=== PATIENT | male | born 1965 | race Caucasian/White ===

== ENCOUNTER 2023-09-07 16:41 | Emergency (ER) | payer SELFPAY ==
[~2023-09-07] VITALS: Ht 165.1 cm; Wt 73.0 kg
[2023-09-07 16:52] VITALS: BP 178/112; PULSE 107; RESP 18; TEMP 98.9; O2SAT 95
[2023-09-07] MEDS: SODIUM CHLORIDE 0.9% 1,000 ML IV ONE (19:39)
[2023-09-07 19:49] LABS: CHLORIDE 109 mEq/L (98-107); POTASSIUM 3.9 mEq/L (3.5-5.1); SODIUM 144 mEq/L (136-145)
[2023-09-07 19:50] LABS: CALCIUM 8.6 mg/dL (8.7-10.4); CARBON DIOXIDE 24 mEq/L (21-32)
[2023-09-07 19:55] LABS: CREATININE 0.7 mg/dL (0.6-1.3); GLUCOSE 103 mg/dL (70-105)
[2023-09-07 20:00] LABS: BASOPHILS % 0.5 % (0.0-2.0); EOSINOPHILS % 1.8 % (0.0-5.0); HEMATOCRIT. 45.8 % (42.0-52.0); HEMOGLOBIN. 15.8 g/dL (14.0-18.0); LYMPHOCYTES % 36.8 % (20.0-50.0); MEAN CORPUSCULAR HEMOGLOBIN 30.5 pg (28.0-32.0); MEAN CORPUSCULAR HGB CONC 34.5 g/dL (31.0-37.0); MEAN CORPUSCULAR VOLUME 88.1 fL (80.0-94.0); MEAN PLATELET VOLUME 6.9 fl (7.4-10.4); NEUTROPHILS % 54.9 % (40.0-76.0); PLATELET 329 x1000/uL (130-400); RED BLOOD CELL COUNT 5.19 mill/uL (4.7-6.1)
[2023-09-07 20:04] LABS: UREA NITROGEN BLOOD < 5 mg/dL (9-23)
[2023-09-07 20:05] LABS: ETHANOL BLOOD 330 mg/dL (<10)
== END 2023-09-07 22:37 | disposition home or self-care (01) ==
LOC: ER 16:41
DX: F10.129 Alcohol abuse with intoxication, unspecified (principal); Y90.8 Blood alcohol level of 240 mg/100 ml or more
CPT/HCPCS: 80048; 80320; 85025; 36415; 96360; 99283; J7030; Z7610; G0480

== ENCOUNTER 2024-09-22 16:24 | Inpatient (IN) | payer MEDICAID ==
[~2024-09-22] VITALS: Ht 157.5 cm; Wt 66.7 kg
[~2024-09-22 16:24] MED LIST: FOLI-43 MT; MULT-624 MT; THIA50TA12 MT
[2024-09-22 16:25] VITALS: O2SAT 99
[2024-09-22] MEDS ORDERED: ACETAMINOPHEN 325MG TABLET PO ONE (17:00)
[2024-09-22 17:28] LABS: BASOPHILS % 0.5 % (0.0-2.0); EOSINOPHILS % 1.7 % (0.0-5.0); HEMATOCRIT. 45.0 % (42.0-52.0); HEMOGLOBIN. 15.4 g/dL (14.0-18.0); LYMPHOCYTES % 24.0 % (20.0-50.0); MEAN PLATELET VOLUME 6.7 fl (7.4-10.4); MONOCYTES % 6.9 % (2.0-8.0); NEUTROPHILS % 66.9 % (40.0-76.0); PLATELET 305 x1000/uL (130-400); RED BLOOD CELL COUNT 5.06 mill/uL (4.7-6.1); RED CELL DISTRIBUTION WIDTH 14.8 % (11.6-14.6)
[2024-09-22] MEDS ORDERED: PANTOPRAZOLE SODIUM 40 MG/VIAL IV ONE (17:30)
[2024-09-22 17:37] LABS: CREATININE 0.7 mg/dL (0.6-1.3); TROPONIN I HIGH SENSITIVITY < 4 ng/L (3.0-53); UREA NITROGEN BLOOD 10 mg/dL (9-23)
[2024-09-22 17:38] LABS: ETHANOL BLOOD 158 mg/dL (<10)
[2024-09-22 17:39] LABS: ASPARTATE AMINOTRANSFERASE 30 IU/L (<34)
[2024-09-22 17:40] LABS: BILIRUBIN DIRECT 0.2 mg/dL (<=3.0); BILIRUBIN TOTAL 1.1 mg/dL (0.1-1.0); PROTEIN TOTAL 6.8 g/dL (6.0-8.3)
[2024-09-22] MEDS: LORAZEPAM 2MG/ML UD SYRINGE IV SCH (19:40)
[2024-09-22] MEDS: PANTOPRAZOLE SODIUM 40 MG/VIAL IV NR (19:40)
[2024-09-22] MEDS: SODIUM CHLORIDE 0.9% 1,000 ML IV ONE (19:40)
[2024-09-22] MEDS: ACETAMINOPHEN 325MG TABLET PO NR (19:40)
[2024-09-22] MEDS ORDERED: GUAIFENESIN 200MG/10ML SUGAR FREE UDC PO PRN (20:00)
[2024-09-22] MEDS ORDERED: DOCUSATE SODIUM 100MG CAPSULE PO PRN (20:00)
[2024-09-22] MEDS ORDERED: ONDANSETRON HCL 4MG/2ML INJ IV PRN (20:00)
[2024-09-22] MEDS ORDERED: IPRATROPIUM/ALBUTEROL 0.5-3(2.5)MG/3ML NEB HHN PRN (20:00)
[2024-09-22] MEDS ORDERED: ACETAMINOPHEN 325MG TABLET PO PRN ×2 (20:00)
[2024-09-22] MEDS ORDERED: LORAZEPAM 2MG/ML UD SYRINGE IV PRN ×4 (20:15→21:00)
[2024-09-22] MEDS ORDERED: LORAZEPAM 1MG TABLET PO PRN (20:15)
[2024-09-22 20:39] LABS: TROPONIN I HIGH SENSITIVITY 4 ng/L (3.0-53)
[2024-09-22] MEDS: MVI, ADULT NO.1 10 ML, FOLIC ACID 1 MG, THIAMINE HCL 100 MG in SODIUM CHLORIDE 0.9% 1,0... IV SCH (21:16)
[2024-09-22] MEDS ORDERED: CHLORDIAZEPOXIDE 5 MG CAPSULE PO SCH (22:00)
[2024-09-22 22:30] VITALS: BP 175/105; PULSE 74; RESP 18; TEMP 37.3076
[2024-09-22 23:03] LABS: FOLIC ACID (FOLATE) SERUM 13.98 ng/mL (>5.38); VITAMIN B12 SERUM 662 pg/mL (211-911)
[2024-09-22] MEDS: SUCRALFATE 1G TABLET PO SCH (23:10)
[2024-09-22] MEDS: CLONIDINE 0.1MG TABLET PO PRN (23:11)
[2024-09-23] VITALS: BP 169/103; PULSE 72; RESP 18; TEMP 36.5; O2SAT 97
[2024-09-23] MEDS: CHLORDIAZEPOXIDE 5 MG CAPSULE PO SCH
[2024-09-23] MEDS: AMLODIPINE 10MG TABLET PO SCH ×2 (01:11→10:04)
[2024-09-23 04:00] VITALS: BP 150/95; PULSE 63; RESP 18; TEMP 36.9; O2SAT 99
[2024-09-23 08:00] VITALS: BP 149/92; PULSE 79; RESP 18; TEMP 36.9; O2SAT 96
[2024-09-23 08:59] LABS: CREATININE 0.8 mg/dL (0.6-1.3); UREA NITROGEN BLOOD 12 mg/dL (9-23)
[2024-09-23 09:02] LABS: T4 FREE 1.35 ng/dL (0.89-1.76)
[2024-09-23 09:32] LABS: CLARITY URINE CLEAR (CLEAR); COLOR URINE YELLOW (YELLOW); GLUCOSE URINE NEGATIVE (NEGATIVE); KETONES URINE NEGATIVE (NEGATIVE); LEUKOCYTE ESTERASE URINE NEGATIVE (NEGATIVE); NITRITE URINE NEGATIVE (NEGATIVE); OCCULT BLOOD URINE NEGATIVE (NEGATIVE); PH URINE 6.5 (4.5-8.0); PROTEIN URINE NEGATIVE (NEGATIVE); SPECIFIC GRAVITY URINE 1.016 (1.005-1.030); UROBILINOGEN URINE 1.0 E.U./dL (0.2-1.0)
[2024-09-23 09:49] LABS: *AMPHETAMINES SCREEN URINE NEGATIVE (NEGATIVE); *BARBITURATES SCREEN URINE NEGATIVE (NEGATIVE); *BENZODIAZEPINES SCREEN URINE NEGATIVE (NEGATIVE); *COCAINE SCREEN URINE NEGATIVE (NEGATIVE); CANNABINOID URINE SCREEN NEGATIVE (NEGATIVE); METHADONE URINE SCREEN NEGATIVE (NEGATIVE); OPIATES URINE SCREEN NEGATIVE (NEGATIVE); PHENCYCLIDINE URINE SCREEN NEGATIVE (NEGATIVE)
[2024-09-23 09:50] LABS: ECSTASY MDMA SCREEN URINE NEGATIVE (NEGATIVE)
[2024-09-23] MEDS: PANTOPRAZOLE SODIUM 40 MG/VIAL IV SCH (10:04)
[2024-09-23] MEDS: FOLIC ACID 1MG TABLET PO SCH (10:04)
[2024-09-23] MEDS: ENOXAPARIN 40MG/0.4ML SYR SUBCUT SCH (10:04)
[2024-09-23 12:00] VITALS: BP 161/92; PULSE 85; RESP 18; TEMP 36.7; O2SAT 99
[2024-09-23 16:00] VITALS: BP 144/97; PULSE 88; RESP 18; TEMP 36.2; O2SAT 99
[2024-09-23] MEDS: LISINOPRIL 5MG TABLET PO SCH (18:58)
[2024-09-23 20:00] VITALS: BP 136/91; PULSE 82; RESP 18; TEMP 37; O2SAT 100
[2024-09-24] VITALS: BP 128/85; PULSE 61; RESP 18; TEMP 36.8; O2SAT 100
[2024-09-24 04:00] VITALS: BP 128/77; PULSE 54; RESP 18; TEMP 36.7; O2SAT 99
[2024-09-24 06:51] LABS: BASOPHILS % 0.4 % (0.0-2.0); EOSINOPHILS % 3.0 % (0.0-5.0); HEMATOCRIT. 46.5 % (42.0-52.0); HEMOGLOBIN. 16.2 g/dL (14.0-18.0); LYMPHOCYTES % 25.6 % (20.0-50.0); MEAN PLATELET VOLUME 7.0 fl (7.4-10.4); MONOCYTES % 10.4 % (2.0-8.0); NEUTROPHILS % 60.6 % (40.0-76.0); PLATELET 328 x1000/uL (130-400); RED BLOOD CELL COUNT 5.18 mill/uL (4.7-6.1); RED CELL DISTRIBUTION WIDTH 14.6 % (11.6-14.6)
[2024-09-24 07:17] LABS: CREATININE 0.8 mg/dL (0.6-1.3); UREA NITROGEN BLOOD 10 mg/dL (9-23)
[2024-09-24 07:19] LABS: PHOSPHORUS 2.7 mg/dL (2.5-4.9)
[2024-09-24 08:00] VITALS: BP 122/79; PULSE 59; RESP 18; TEMP 36.3; O2SAT 99
[2024-09-24] MEDS: CETIRIZINE 10MG TABLET PO SCH (09:30)
[2024-09-24] MEDS: CHLORDIAZEPOXIDE 25MG CAPSULE PO SCH (09:30)
[2024-09-24 12:00] VITALS: BP 129/84; PULSE 68; RESP 15; TEMP 36.7; O2SAT 96
[2024-09-24] MEDS ORDERED: CETI-341 PO (15:27)
[2024-09-24] MEDS ORDERED: AMLO10TA80 PO (15:27)
[2024-09-24] MEDS ORDERED: LISI-186 PO (15:27)
[2024-09-24] MEDS ORDERED: PANT40TA51 MT (15:27)
[2024-09-24 15:48] VITALS: BP 115/75; PULSE 85; RESP 18; TEMP 98.1
[2024-09-24 16:00] VITALS: BP 115/75; PULSE 85; RESP 18; TEMP 36.7; O2SAT 99
[2024-09-25] MEDS ORDERED: THIAMINE HCL 100MG TABLET PO SCH (09:00)
== END 2024-09-24 17:50 | disposition home or self-care (01) | DRG 775 ==
LOC: ER 16:24 → 6WST 18:59 → EDBEDREQ 19:30 → EDBEDREQTM 19:30 → ENRESERV 20:14
PROVIDERS: ADMIT Internal Medicine; ATTEND Internal Medicine
DX: F10.139 Alcohol abuse with withdrawal, unspecified (principal); E80.6 Other disorders of bilirubin metabolism; R07.89 Other chest pain; I10 Essential (primary) hypertension; F41.9 Anxiety disorder, unspecified; Y90.6 Blood alcohol level of 120-199 mg/100 ml; Z79.899 Other long term (current) drug therapy
CPT/HCPCS: 36415; 71045; 80048; 80076; 80305; 80320; 81003; 82607; 82746; 83605; 83735; 84100; 84439; 84443; 84484; 85025; 93005; 99285; A4606; J1650; J2060; J2470; J3411; J3490; J7030; G0480